=== PATIENT | female | born 1950 | race Caucasian/White ===

== ENCOUNTER 2023-11-23 03:58 | Day surgery (SDC) | payer OTHER ==
[2023-11-18 09:26] VITALS: BMI 22.2
[2023-11-23] MEDS ORDERED: LIDOCAINE HCL/PF 1% SDV 5ML VIAL ONE (07:31)
[2023-11-23] MEDS ORDERED: ACETAMINOPHEN 500 MG TABLET (FP) PO PRN (11:06)
[2023-11-23] MEDS: DEXAMETHASONE SOD PHOSPHATE 10 MG/1 ML VIAL IVPUSH ONE (12:48)
[2023-11-23] MEDS: IOHEXOL 180 MG/1 ML ML IJ ONE (12:48)
[2023-11-23] MEDS: LIDOCAINE 1% P/F 10 MG/ML VIAL INF ONE (12:48)
[2023-11-23 13:43] VITALS: BP 151/81; PULSE 88; RESP 16; TEMP 98.2
== END 2023-11-23 13:52 | disposition home or self-care (01) ==
LOC: JASU-SURG 03:58
PROVIDERS: ATTEND Pain Medicine Pain Medicine
PROC: 3E0R3BZ Introduction of Anesthetic Agent into Spinal Canal, Percutaneous Approach (ICD-10-PCS; 2023-11-23)
PROC: 3E0R33Z Introduction of Anti-inflammatory into Spinal Canal, Percutaneous Approach (ICD-10-PCS; principal; 2023-11-23 13:00)
DX: M54.16 Radiculopathy, lumbar region (principal)
CPT/HCPCS: 76000-TC-FY; J1100

== ENCOUNTER 2023-12-24 04:33 | Day surgery (SDC) | payer OTHER ==
[2023-12-16 14:57] VITALS: BMI 22.2
[2023-12-24] MEDS ORDERED: BUPIVACAINE HCL/PF 0.5% (5MG/ML) 10 ML VIAL ONE (07:34)
[2023-12-24] MEDS ORDERED: LIDOCAINE HCL/PF 1% SDV 5ML VIAL ONE (07:35)
[2023-12-24] MEDS ORDERED: TRIAMCINOLONE ACET 40MG/1ML VIAL ONE (09:59)
[2023-12-24] MEDS ORDERED: ACETAMINOPHEN 500 MG TABLET (FP) PO PRN (10:07)
[2023-12-24 10:34] VITALS: RESP 18
[2023-12-24] MEDS: TRIAMCINOLONE ACET 40MG/1ML VIAL IM ONE ×3 (11:02)
[2023-12-24] MEDS: LIDOCAINE HCL 1% PRESERVATIVE FREE - 30ML VIAL IJ ONE ×2 (11:02)
[2023-12-24] MEDS: IOHEXOL 180 MG/1 ML ML IT ONE ×3 (11:02)
[2023-12-24] MEDS: BUPIVACAINE HCL/PF 0.5% (5MG/ML) 10 ML VIAL CAUD ONE ×2 (11:02)
[2023-12-24 11:58] VITALS: BP 143/72; PULSE 78; TEMP 97.9
== END 2023-12-24 11:52 | disposition home or self-care (01) ==
LOC: JASU-SURG 04:33
PROVIDERS: ATTEND Pain Medicine Pain Medicine
PROC: 3E0U3BZ Introduction of Anesthetic Agent into Joints, Percutaneous Approach (ICD-10-PCS; 2023-12-24)
PROC: 3E0U33Z Introduction of Anti-inflammatory into Joints, Percutaneous Approach (ICD-10-PCS; principal; 2023-12-24 11:30)
DX: M53.3 Sacrococcygeal disorders, not elsewhere classified (principal)
CPT/HCPCS: 76000-TC-FY

== ENCOUNTER → 2024-01-25 | Day surgery (SDC) | payer OTHER ==
[2024-01-24 11:15] VITALS: BMI 21.8
[~2024-01-25] MED LIST: BUPIVACAINE HCL/PF 0.5% (5MG/ML) 10 ML VIAL ONE; BUPIVACAINE HCL/PF 0.75% 10 ML VIAL ONE; LIDOCAINE HCL/PF 1% SDV 5ML VIAL ONE; LIDOCAINE HCL/PF 2% SDV 5ML VIAL ONE
[2024-01-25] MEDS: LIDOCAINE HCL 1% PRESERVATIVE FREE - 30ML VIAL IJ ONE ×2 (12:31→12:36)
[2024-01-25] MEDS: BUPIVACAINE HCL/PF 0.75% 10 ML VIAL NR ONE ×2 (12:32→12:36)
[2024-01-25 13:19] VITALS: BP 159/86; PULSE 89; RESP 16; TEMP 97.3
== END | disposition home or self-care (01) ==
LOC: JASU-SURG 04:43
PROVIDERS: ATTEND Pain Medicine Pain Medicine
PROC: 3E0T33Z Introduction of Anti-inflammatory into Peripheral Nerves and Plexi, Percutaneous Approach (ICD-10-PCS; 2024-01-25)
PROC: 3E0T3BZ Introduction of Anesthetic Agent into Peripheral Nerves and Plexi, Percutaneous Approach (ICD-10-PCS; principal; 2024-01-25 13:15)
DX: M47.816 Spondylosis without myelopathy or radiculopathy, lumbar region (principal)
CPT/HCPCS: 76000-TC-FY

== ENCOUNTER 2024-02-25 03:48 | Day surgery (SDC) | payer OTHER ==
[2024-02-21 11:25] VITALS: BMI 22.2
[2024-02-25] MEDS ORDERED: BUPIVACAINE HCL/PF 0.75% 10 ML VIAL ONE (07:02)
[2024-02-25] MEDS ORDERED: LIDOCAINE HCL/PF 1% SDV 5ML VIAL ONE (07:02)
[2024-02-25] MEDS ORDERED: ACETAMINOPHEN 500 MG TABLET (FP) PO PRN (14:36)
[2024-02-25] MEDS: LIDOCAINE 1% P/F 10 MG/ML VIAL INF ONE ×2 (15:19)
[2024-02-25] MEDS: BUPIVACAINE HCL/PF 0.75% 10 ML VIAL NR ONE ×2 (15:19)
[2024-02-25 15:40] VITALS: BP 160/65; PULSE 66; RESP 18; TEMP 97.8
== END 2024-02-25 16:11 | disposition home or self-care (01) ==
LOC: JASU-SURG 03:48
PROVIDERS: ATTEND Pain Medicine Pain Medicine
PROC: BR16YZZ Fluoroscopy of Lumbar Facet Joint(s) using Other Contrast (ICD-10-PCS; 2024-02-25)
PROC: 3E0T3BZ Introduction of Anesthetic Agent into Peripheral Nerves and Plexi, Percutaneous Approach (ICD-10-PCS; principal; 2024-02-25 16:45)
DX: M47.816 Spondylosis without myelopathy or radiculopathy, lumbar region (principal)
CPT/HCPCS: 76000-TC-FY

== ENCOUNTER 2024-03-24 04:42 | Day surgery (SDC) | payer OTHER ==
[2024-03-23 09:23] VITALS: BMI 22.2
[2024-03-24] MEDS: IOHEXOL 180 MG/1 ML ML IJ ONE
[2024-03-24] MEDS ORDERED: ACETAMINOPHEN 500 MG TABLET (FP) PO PRN (11:23)
[2024-03-24 13:27] VITALS: TEMP 97.5
[2024-03-24] MEDS: LIDOCAINE HCL 1% PRESERVATIVE FREE - 30ML VIAL IJ ONE ×2 (14:40)
[2024-03-24] MEDS: BUPIVACAINE HCL/PF 0.75% 10 ML VIAL NR ONE (14:40)
[2024-03-24] MEDS: LIDOCAINE HCL/PF 2% SDV 5ML VIAL INF ONE ×2 (14:40)
[2024-03-24] MEDS: DEXAMETHASONE SOD PHOSPHATE 10 MG/1 ML VIAL IVPUSH ONE ×2 (14:40)
[2024-03-24 15:08] VITALS: BP 140/81; PULSE 70; RESP 19
== END 2024-03-24 15:25 | disposition home or self-care (01) ==
LOC: JASU-SURG 04:42
PROVIDERS: ATTEND Pain Medicine Pain Medicine
PROC: 015B3ZZ Destruction of Lumbar Nerve, Percutaneous Approach (ICD-10-PCS; principal; 2024-03-24 15:00)
DX: M47.816 Spondylosis without myelopathy or radiculopathy, lumbar region (principal)
CPT/HCPCS: 76000-TC-FY; J1100

== ENCOUNTER 2024-05-04 04:13 | Day surgery (SDC) | payer OTHER ==
[2024-04-25 17:09] VITALS: BMI 22.2
[~2024-05-04 04:13] MED LIST changes: +ACETAMINOPHEN 500 MG TABLET (FP) PO PRN; -BUPIVACAINE HCL/PF 0.5% (5MG/ML) 10 ML VIAL ONE; -BUPIVACAINE HCL/PF 0.75% 10 ML VIAL ONE; -LIDOCAINE HCL/PF 1% SDV 5ML VIAL ONE; -LIDOCAINE HCL/PF 2% SDV 5ML VIAL ONE
[2024-05-04] MEDS ORDERED: LIDOCAINE HCL/PF 2% SDV 5ML VIAL ONE (07:40)
[2024-05-04] MEDS ORDERED: DEXAMETHASONE SOD PHOSPHATE 10 MG/1 ML VIAL ONE (07:41)
[2024-05-04] MEDS ORDERED: BUPIVACAINE HCL/PF 0.75% 10 ML VIAL ONE (07:41)
[2024-05-04] MEDS ORDERED: LIDOCAINE HCL/PF 1% SDV 5ML VIAL ONE (07:48)
[2024-05-04] MEDS ORDERED: ACETAMINOPHEN 500 MG TABLET (FP) PO PRN (09:03)
[2024-05-04 11:20] VITALS: RESP 18
[2024-05-04] MEDS: LIDOCAINE HCL 1% PRESERVATIVE FREE - 30ML VIAL IJ ONE (13:02)
[2024-05-04] MEDS: LIDOCAINE HCL 2% (50ML VIAL) NR ONE (13:03)
[2024-05-04] MEDS: BUPIVACAINE HCL/PF 0.75% 10 ML VIAL NR ONE (13:03)
[2024-05-04] MEDS: DEXAMETHASONE SOD PHOSPHATE 10 MG/1 ML VIAL IVPUSH ONE (13:04)
[2024-05-04 13:41] VITALS: BP 137/87; PULSE 73; TEMP 97
== END 2024-05-04 13:55 | disposition home or self-care (01) ==
LOC: JASU-SURG 04:13
PROVIDERS: ATTEND Pain Medicine Pain Medicine
PROC: 015B3ZZ Destruction of Lumbar Nerve, Percutaneous Approach (ICD-10-PCS; principal; 2024-05-04 12:30)
DX: M47.816 Spondylosis without myelopathy or radiculopathy, lumbar region (principal)
CPT/HCPCS: 76000-TC-FY; J1100

== ENCOUNTER 2024-06-15 04:22 | Day surgery (SDC) | payer OTHER ==
[2024-06-14 11:44] VITALS: BMI 22.2
[2024-06-15 11:09] VITALS: TEMP 96.6
[2024-06-15] MEDS ORDERED: DEXAMETHASONE SOD PHOSPHATE 10 MG/1 ML VIAL ONE (11:12)
[2024-06-15] MEDS: DEXAMETHASONE SOD PHOSPHATE 10 MG/1 ML VIAL IVPUSH ONE (11:36)
[2024-06-15] MEDS: LIDOCAINE 1% P/F 10 MG/ML VIAL PNB ONE (11:37)
[2024-06-15] MEDS: IOHEXOL 180 MG/1 ML ML IJ ONE (11:39)
[2024-06-15 11:56] VITALS: BP 154/71; PULSE 61; RESP 18
== END 2024-06-15 12:13 | disposition home or self-care (01) ==
LOC: JASU-SURG 04:22
PROVIDERS: ATTEND Pain Medicine Pain Medicine
PROC: 3E0R3BZ Introduction of Anesthetic Agent into Spinal Canal, Percutaneous Approach (ICD-10-PCS; 2024-06-15)
PROC: 3E0R33Z Introduction of Anti-inflammatory into Spinal Canal, Percutaneous Approach (ICD-10-PCS; principal; 2024-06-15 11:00)
DX: M54.16 Radiculopathy, lumbar region (principal)
CPT/HCPCS: 76000-TC-FY; J1100

== ENCOUNTER 2024-07-20 04:00 | Day surgery (SDC) | payer OTHER ==
[2024-07-18 17:01] VITALS: BMI 22.2
[2024-07-20] MEDS ORDERED: DEXAMETHASONE SOD PHOSPHATE 10 MG/1 ML VIAL ONE (07:17)
[2024-07-20] MEDS ORDERED: LIDOCAINE HCL/PF 1% SDV 5ML VIAL ONE (07:17)
[2024-07-20] MEDS ORDERED: ACETAMINOPHEN 500 MG TABLET (FP) PO PRN (08:36)
[2024-07-20 09:55] VITALS: RESP 18
[2024-07-20] MEDS: LIDOCAINE HCL 1% PRESERVATIVE FREE - 30ML VIAL IJ ONE (10:58)
[2024-07-20 12:19] VITALS: BP 174/72; PULSE 79; TEMP 97.3
== END 2024-07-20 12:19 | disposition home or self-care (01) ==
LOC: JASU-SURG 04:00
PROVIDERS: ATTEND Pain Medicine Pain Medicine
PROC: 01HY3MZ Insertion of Neurostimulator Lead into Peripheral Nerve, Percutaneous Approach (ICD-10-PCS; principal; 2024-07-20 09:30)
DX: G89.4 Chronic pain syndrome (principal); M54.50 Low back pain, unspecified
CPT/HCPCS: 64555; C1778; 76000-TC-FY; J1100

== ENCOUNTER 2024-08-16 19:33 | Emergency (ER) | payer OTHER ==
[2024-08-16 19:45] VITALS: BP 124/70; PULSE 80; RESP 20; TEMP 98.1; BMI 22.2
[2024-08-16] MEDS ORDERED: DALBAVANCIN HCL 500 MG VIAL (RESTRICTED TO ID ONLY) IVPB ONE (21:18)
[2024-08-16] MEDS: DALBAVANCIN HCL 1,500 MG in DEXTROSE 5%-WATER - 500 ML IVPB ONE (21:40)
== END 2024-08-16 22:34 | disposition left against medical advice (07) ==
LOC: JER 19:33
DX: L03.114 Cellulitis of left upper limb (principal)
CPT/HCPCS: 93005; 93010; 99284-25; J0875

== ENCOUNTER 2024-09-22 04:18 | Day surgery (SDC) | payer OTHER ==
[2024-08-30 13:13] VITALS: BMI 22.2
[2024-09-22] MEDS ORDERED: LIDOCAINE HCL/PF 1% SDV 5ML VIAL ONE (07:38)
[2024-09-22 11:44] VITALS: RESP 16
[2024-09-22] MEDS: LIDOCAINE HCL 1% PRESERVATIVE FREE - 30ML VIAL IJ ONE ×2 (13:54)
[2024-09-22] MEDS ORDERED: ACETAMINOPHEN 500 MG TABLET (FP) ONE (14:26)
[2024-09-22] MEDS: ACETAMINOPHEN 500 MG TABLET (FP) PO PRN (14:29)
[2024-09-22 14:36] VITALS: BP 155/87; PULSE 72; TEMP 97.5
== END 2024-09-22 14:55 | disposition home or self-care (01) ==
LOC: JASU-SURG 04:18
PROVIDERS: ATTEND Pain Medicine Pain Medicine
PROC: 01HY3MZ Insertion of Neurostimulator Lead into Peripheral Nerve, Percutaneous Approach (ICD-10-PCS; principal; 2024-09-22 12:00)
DX: G89.4 Chronic pain syndrome (principal)
CPT/HCPCS: 64555; C1778; 76000-TC-FY

== ENCOUNTER 2024-10-20 03:58 | Day surgery (SDC) | payer OTHER ==
[2024-10-10 14:19] VITALS: BMI 22.2
[2024-10-20] MEDS ORDERED: ACETAMINOPHEN 500 MG TABLET (FP) PO PRN (08:52)
[2024-10-20] MEDS: LIDOCAINE HCL 1% PRESERVATIVE FREE - 30ML VIAL IJ ONE ×2 (09:24)
[2024-10-20 11:46] VITALS: RESP 18
[2024-10-20 14:03] VITALS: BP 122/62; PULSE 60; TEMP 97
== END 2024-10-20 13:30 | disposition home or self-care (01) ==
LOC: JASU-SURG 03:58
PROVIDERS: ATTEND Pain Medicine Pain Medicine
PROC: 01HY3MZ Insertion of Neurostimulator Lead into Peripheral Nerve, Percutaneous Approach (ICD-10-PCS; principal; 2024-10-20 10:00)
DX: G89.4 Chronic pain syndrome (principal)
CPT/HCPCS: 64555; C1778

== ENCOUNTER 2025-01-19 06:00 | Day surgery (SDC) | payer OTHER ==
[2025-01-18 13:54] VITALS: BMI 22.2
[2025-01-19] MEDS ORDERED: ACETAMINOPHEN 500 MG TABLET (FP) PO PRN (09:16)
[2025-01-19 09:45] VITALS: RESP 18
[2025-01-19] MEDS: CLINDAMYCIN 900 MG PREMIX IVPB 900 MG/50 ML BAG IVPB ONE (09:52)
[2025-01-19] MEDS: LIDOCAINE HCL/PF 2% SDV 5ML VIAL INF ONE ×3 (11:15)
[2025-01-19] MEDS: LIDOCAINE HCL 1% PRESERVATIVE FREE - 30ML VIAL IJ ONE ×3 (11:15)
[2025-01-19 12:11] VITALS: BP 150/68; PULSE 80; TEMP 97.9
== END 2025-01-19 12:45 | disposition home or self-care (01) ==
LOC: JASU-SURG 06:00
PROVIDERS: ATTEND Pain Medicine Pain Medicine
PROC: 01HY3MZ Insertion of Neurostimulator Lead into Peripheral Nerve, Percutaneous Approach (ICD-10-PCS; principal; 2025-01-19 10:15)
DX: M96.1 Postlaminectomy syndrome, not elsewhere classified (principal); G89.4 Chronic pain syndrome; M54.16 Radiculopathy, lumbar region
CPT/HCPCS: 64555; C1897; 76000-TC-FY

== ENCOUNTER 2025-05-15 06:17 | Day surgery (SDC) | payer OTHER ==
[2025-05-15] MEDS ORDERED: ACETAMINOPHEN 500 MG TABLET (FP) PO PRN (09:03)
[2025-05-15] MEDS ORDERED: LIDOCAINE HCL/PF 1% SDV 5ML VIAL ONE (11:22)
[2025-05-15] MEDS ORDERED: ONDANSETRON 4 MG/2 ML VIAL ONE (11:32)
[2025-05-15] MEDS ORDERED: PROPOFOL 40 ML ONE (11:32)
[2025-05-15] MEDS ORDERED: DEXAMETHASONE SOD PHOSPHATE 4 MG/1 ML VIAL ONE (11:32)
[2025-05-15] MEDS ORDERED: MIDAZOLAM HCL 2 MG/2 ML SINGLE DOSE VIAL ONE (11:33)
[2025-05-15] MEDS: LIDOCAINE HCL 1% PRESERVATIVE FREE - 30ML VIAL IJ ONE (12:50)
[2025-05-15] MEDS: GENTAMICIN 80MG PREMIX BAG IVPB ONE (12:55)
[2025-05-15] MEDS: LIDOCAINE HCL 2% 100 MG/5 ML DISP.SYRIN IVPB ONE (13:00)
[2025-05-15] MEDS: THROMBIN (BOVINE) 5,000 UNIT VIAL TP ONE (13:30)
[2025-05-15] MEDS: BACITRACIN 0.9 GM PACKET TP ONE (13:50)
[2025-05-15] MEDS ORDERED: ONDANSETRON 4 MG/2 ML VIAL IVPUSH PRN (14:34)
[2025-05-15] MEDS: LACTATED RINGERS SOLUTION 1,000 ML IV SCH (14:47)
[2025-05-15 16:47] VITALS: RESP 16; TEMP 97.8
[2025-05-15 16:51] VITALS: BP 130/72; PULSE 74
== END 2025-05-15 16:35 | disposition home or self-care (01) ==
LOC: JASU-SURG 06:17
PROVIDERS: ATTEND Pain Medicine Pain Medicine
PROC: 00HU3MZ Insertion of Neurostimulator Lead into Spinal Canal, Percutaneous Approach (ICD-10-PCS; 2025-05-15)
PROC: 0JH70DZ Insertion of Multiple Array Stimulator Generator into Back Subcutaneous Tissue and Fascia, Open Approach (ICD-10-PCS; principal; 2025-05-15 11:00)
DX: G89.4 Chronic pain syndrome (principal); M54.16 Radiculopathy, lumbar region; M96.1 Postlaminectomy syndrome, not elsewhere classified
CPT/HCPCS: 63650; 63685; C1767; C1778; 76000-TC-FY; 94760; C1787